=== PATIENT | male | born 1995 | race Two or more races ===

== ENCOUNTER 2023-10-23 10:35 | Emergency (ER) | payer OTHER ==
[2023-10-23] MEDS: Tetracaine HCl/PF 0.5% 4 ML Bottle EYERT ONE (10:50)
== END 2023-10-23 11:38 | disposition home or self-care (01) ==
LOC: MW.ED 10:35
DX: T15.02XA Foreign body in cornea, left eye, initial encounter (principal); Z79.899 Other long term (current) drug therapy; W44.8XXA Other foreign body entering into or through a natural orifice, initial encounter
CPT/HCPCS: 65220; 99283; J3490